=== PATIENT | female | born 1960 | race Two or more races ===

== ENCOUNTER 2019-12-27 17:26 | Emergency (ER) | payer MEDICAID ==
--- NOTE | 2019-12-27 18:45 | ER Document Report ---
ED Medical Screen (RME) - General Stated Complaint: EYE PAIN Time Seen by Provider: 12/27/19 18:41 Notes: HPI: 59-year-old diabetic female presenting with left eye itching redness and tearing for the last 10 days. Reports mild eye irritation but no definitive ocular pain. Slight blurring of vision. PHYSICAL EXAMINATION: Limited exam in triage. There is some erythema to the conjunctive of the left eye no definitive foreign body under the upper or lower lids I have greeted and performed a rapid initial assessment of this patient. A comprehensive ED assessment and evaluation of the patient, analysis of test results and completion of medical decision making process will be conducted by an additional ED providers. - Related Data Allergies/Adverse Reactions: No Known Allergies Allergy (Verified 12/27/19 18:41) Home Medications: metformin, insulin Physical Exam - Vital signs Vitals: Temp Pulse Resp BP Pulse Ox 98.2 F 85 18 108/66 98 12/27/19 17:43 12/27/19 17:43 12/27/19 17:43 12/27/19 17:43 12/27/19 17:43 Course - Vital Signs Vital signs: Temp Pulse Resp BP Pulse Ox 98.2 F 85 18 108/66 98 12/27/19 17:43 12/27/19 17:43 12/27/19 17:43 12/27/19 17:43 12/27/19 17:43
[2019-12-27] MEDS ORDERED: CIPROFLOXACIN HCL 0.3% OPH SOLN 2.5 ML OS ONE (22:03)
[2019-12-27 22:23] VITALS: BP 118/66
--- NOTE | 2019-12-27 22:25 | ER Document Report ---
Entered by JOSSELYN ELLIS SCRIBE 12/27/192201 Acting as scribe for:KEVIN PATEL IV, MD ED Eye Complaint - General Chief Complaint: Eye Problem Stated Complaint: EYE PAIN Time Seen by Provider: 12/27/19 18:41 Mode of Arrival: Ambulatory Information source: Relative Notes: This 59 year old female patient presents to the ED today with complaints of left eye pain, tearing, and white/sticky discharge for the past x10 days. Relative at bedside mentions that the patient swam in a vazquez x1-2 days prior to symptom onset. Patient does wear contacts. Denies any other complaints. - Related Data Allergies/Adverse Reactions: No Known Allergies Allergy (Verified 12/27/19 18:41) Home Medications: metformin, insulin Past Medical History - General Information source: Relative - Social History Smoking Status: Current Every Day Smoker Smoking Education Provided: No Lives with: Family Family History: Reviewed & Not Pertinent Endocrine Medical History: Reports: Hx Diabetes Mellitus Type 2 Review of Systems - Review of Systems Constitutional: No symptoms reported EENT: See HPI, Eye pain, Eye discharge, Tearing Cardiovascular: No symptoms reported Respiratory: No symptoms reported Gastrointestinal: No symptoms reported Genitourinary: No symptoms reported Female Genitourinary: No symptoms reported Musculoskeletal: No symptoms reported Skin: No symptoms reported Hematologic/Lymphatic: No symptoms reported Neurological/Psychological: No symptoms reported -: Yes All other systems reviewed and negative Physical Exam - Vital signs Vitals: Temp Pulse Resp BP Pulse Ox 98.2 F 85 18 108/66 98 12/27/19 17:43 12/27/19 17:43 12/27/19 17:43 12/27/19 17:43 12/27/19 17:43 Interpretation: Normal - General General appearance: Alert In distress: None - HEENT Head: Normocephalic, Atraumatic Eyes: Other - Purulent discharge noted around left eye; Negative Ellie's test Conjunctiva: Injected - Left Cornea: Flourescein stain uptake - in a diffuse stippling pattern. No: Dendrite Extraocular movements intact: Yes Eyelashes: Other - Dried purulent discharge noted in eyelashes of left eye Pupils: PERRL Visual acuity- Right eye: 20/25 Visual acuity- Left eye: 20/30 Visual acuity- Both eyes: 20/25 Corrective lenses worn: No - Respiratory Respiratory status: No respiratory distress Chest status: Nontender Breath sounds: Normal Chest palpation: Normal - Cardiovascular Rhythm: Regular Heart sounds: Normal auscultation Murmur: No Friction rub: No Gallop: None auscultated - Abdominal Inspection: Normal Distension: No distension Bowel sounds: Normal Tenderness: Nontender - Abdomen soft Organomegaly: No organomegaly - Back Back: Normal, Nontender - Extremities General upper extremity: Normal inspection General lower extremity: Normal inspection - Neurological Neuro grossly intact: Yes Orientation: AAOx4 Maisha Coma Scale Eye Opening: Spontaneous Maisha Coma Scale Verbal: Oriented Maisha Coma Scale Motor: Obeys Commands Maisha Coma Scale Total: 15 - Psychological Associated symptoms: Normal affect, Normal mood - Skin Skin Temperature: Warm Skin Moisture: Dry Skin Color: Normal Course - Re-evaluation Re-evalutation: 12/27/19 22:06 Results of examination, diagnosis, plan of care and follow-up discussed with patient and patient's son. All questions were answered prior to discharge. Emergency C signs and symptoms reasons to return to the emergency department discussed with patient and patient's son. - Vital Signs Vital signs: Temp Pulse Resp BP Pulse Ox 98.1 F 71 16 118/66 98 12/27/19 22:21 12/27/19 22:21 12/27/19 22:21 12/27/19 22:21 12/27/19 22:21 12/27/19 22:07 Visual acuity reviewed by this MD. - Laboratory Laboratory results interpreted by me: 12/27/19 18:49 POC Glucose 153 H Discharge - Discharge Clinical Impression: Acute bacterial conjunctivitis of left eye Condition: Stable Disposition: HOME, SELF-CARE Instructions: Antibiotic Therapy ([facility]), Conjunctivitis ([facility]) Additional Instructions: Return to the Emergency Department without delay if any worse. HOME CARE INSTRUCTIONS & INFORMATION: Thank you for choosing us for your medical needs. We hope you're satisfied with the care you received. After you leave, you must properly care for your problem and, at the same time, observe its progress. Any condition can change. Some illnesses can change rapidly over hours or days. If your condition worsens, return to the Emergency Department or see your physician promptly. ABOUT YOUR X-RAYS AND EKG'S: If you had an EKG or X-rays taken, they have been read by the Emergency Physician. The X-rays and EKG's will also be read by a Radiologist or Health Insurance Sales Agent within 24 hours. If discrepancies are noted, you will be notified by telephone. Please be certain the ED has a correct telephone number & address where you can be reached. Also, realize that some fractures or abnormalities do not show up on initial X-rays. If your symptoms continue, see your physician. ABOUT YOUR LABORATORY TEST: If you had laboratory tests, the results have been reviewed by the Emergency Physician. Some test results (for example cultures) may not be available for several days. You will be contacted if any test result shows you need additional treatment. Please be certain the ED has a correct telephone number and address where you can be reached. ABOUT YOUR MEDICATIONS: You will receive instructions on how to take your medicine on the prescription label you receive. Additional information may be provided by the Pharmacy. If you have questions afterwards, call the ED for clarification or further instructions. Some prescribed medications may cause drowsiness. Do not perform tasks such as driving a car or operating machinery without consulting your Pharmacist. If you feel you need a refill of pain medication, your condition will need re-evaluation. Please do not call for a refill of any medication. ABOUT YOUR SIGNATURE: Signature of this document acknowledges to followin. Understanding that you received emergency treatment and that you may be released before al medical problems are known or treated. Please be certain the ED has a correct phone number & address where you can be reached. 2. Acknowledgement that you will arrange for follow-up care as recommended. 3. Authorization for the Emergency Physician to provide information to your follow-up Physician in order to maximize your care. AT ANY TIME, IF YOUR SYMPTOMS CHANGE SIGNIFICANTLY OR WORSEN OR YOU DEVELOP NEW SYMPTOMS, RETURN TO THE EMERGENCY DEPARTMENT IMMEDIATELY FOR RE-EVALUATION. OUR GOAL IS TO PROVIDE EXCELLENT MEDICAL CARE! WE HOPE THAT WE HAVE MET YOUR EXPECTATIONS DURING YOUR EMERGENCY DEPARTMENT VISIT AND THAT YOU FEEL YOU HAVE RECEIVED EXCELLENT CARE! Follow up with your eye doctor on 12/29/2019. Prescriptions: Moxifloxacin HCl [Vigamox 0.5% Oph Soln 3 ml] 1 drop OS TID 7 Days #1 bottle I personally performed the services described in the documentation, reviewed and edited the documentation which was dictated to the scribe in my presence, and it accurately records my words and actions.
== END 2019-12-27 22:24 | disposition home or self-care (01) ==
LOC: ER 17:26
DX: H10.32 Unspecified acute conjunctivitis, left eye (principal); B96.89 Other specified bacterial agents as the cause of diseases classified elsewhere; H57.12 Ocular pain, left eye; F17.200 Nicotine dependence, unspecified, uncomplicated; E11.9 Type 2 diabetes mellitus without complications; Z79.4 Long term (current) use of insulin
CPT/HCPCS: 99283; 82962; J3490